=== PATIENT | male | born 1960 | race Caucasian/White ===

== ENCOUNTER → 2023-09-09 09:01 | Outpatient (REF) | payer BC, SELFPAY | LOC: HWRAD 09:01 | PROVIDERS: ATTENDING PHYSICIAN Family Medicine | DX: R05.3 Chronic cough (principal) | CPT/HCPCS: 71046 ==

== ENCOUNTER → 2024-10-07 09:11 | Outpatient (REF) | payer MEDICARE, OTHER, SELFPAY | LOC: RCS 09:11 | PROVIDERS: ATTENDING PHYSICIAN Student in an Organized Health Care Education/Training Program; FAMILY PHYSICIAN Family Medicine | DX: I77.810 Thoracic aortic ectasia (principal) | CPT/HCPCS: 93306 ==